=== PATIENT | female | born 1960 | race Caucasian/White ===

== ENCOUNTER 2017-05-22 07:59 | Emergency (ER) | payer OTHER ==
[~2017-05-22 07:59] MED LIST: CATAPRES0.1 M1 PO; INDOMETHACIN50 MG PO; METFORMIN HCL1000 M1 PO; TOPROL XL PO; [UNRECOGNIZED DRUG - OTHER] PO
[2017-05-22] MEDS ORDERED: NORVASC PO (08:11)
[2017-05-22] MEDS ORDERED: METOPROLOL SUCC25 MG PO (08:12)
[2017-05-22] MEDS ORDERED: BUPROPION XL300 MG PO (08:12)
[2017-05-22] MEDS ORDERED: INVOKANA100 MG PO (08:12)
[2017-05-22] MEDS ORDERED: IBUPROFEN PO (08:12)
[2017-05-22] MEDS ORDERED: MULTIVITAMINS1 EAC3 (08:13)
[2017-05-22] MEDS ORDERED: SKELAXIN PO (08:15)
[2017-05-22 08:48] LABS: URINE SOURCE CLEAN CATCH
[2017-05-22 08:54] LABS: MICRO INDICATED? YES; URINE APPEARANCE CLEAR; URINE BILIRUBIN NEG (NEG); URINE BLOOD TRACE-INTACT (NEG); URINE COLOR YELLOW; URINE GLUCOSE 300 MG/DL (NORM); URINE KETONE NEG (NEG); URINE LEUKOCYTE ESTERASE NEG (NEG); URINE NITRATE NEG (NEG); URINE PH 5.5 (5-8); URINE PROTEIN NEG (NEG); URINE SPECIFIC GRAVITY 1.015 (1.003-1.035); URINE UROBILINOGEN 0.2 MG/DL (NORM)
[2017-05-22 08:58] LABS: URINE RBC 0-2 /[HPF] (0-2); URINE WBC 0-2 /[HPF] (0-5)
[2017-05-22 08:59] LABS: URINE BACTERIA NEG (NEG); URINE SQUAMOUS EPITHELIAL CELL OCCAS /[HPF]
== END 2017-05-22 09:47 | disposition home or self-care (01) ==
LOC: SED 07:59
PROVIDERS: Emergency Medicine
DX: S39.012A Strain of muscle, fascia and tendon of lower back, initial encounter (principal); M54.41 Lumbago with sciatica, right side; E11.9 Type 2 diabetes mellitus without complications; F32.9 Major depressive disorder, single episode, unspecified; Z90.49 Acquired absence of other specified parts of digestive tract; Z98.51 Tubal ligation status; Z79.899 Other long term (current) drug therapy; X50.9XXA Other and unspecified overexertion or strenuous movements or postures, initial encounter
CPT/HCPCS: 81003; 96372; 99283; J1885